=== PATIENT | female | born 1955 | race Two or more races ===

== ENCOUNTER 2019-06-05 15:25 | Inpatient (IN) | payer OTHER ==
[~2019-06-05] VITALS: Ht 157.5 cm; Wt 65.7 kg
[2019-06-05 15:51] LABS: Basophils # (auto) 0 uL; Basophils % (auto) 0.7 % (0.0-2.0); Eosinophils # (auto) 0.1 uL; Hematocrit 45.9 % (36.0-46.0); Lymphocytes # (auto) 1.4 uL; Lymphocytes % (auto) 18.9 % (10.0-50.0); Mean Corpuscular Hemoglobin 33.1 pg (28.0-32.0); Mean Corpuscular Volume 94.7 fL (80.0-100.0); Monocytes # (auto) 0.6 uL; Monocytes % (auto) 7.8 % (0.0-12.0); Neutrophils # (auto) 5.2 uL; Neutrophils % (auto) 71.6 % (37.0-80.0); Nucleated Red Blood Cells % 0.1 %; Platelet Count (auto) 288 10^3/uL (140-450); Red Blood Cells 4.84 10^6/uL (4.0-5.20); Red Cell Distribution Width 13.4 % (11.8-14.3); White Blood Cell 7.2 10^3/uL (4.4-10.8)
[2019-06-05 15:52] LABS: Urine Bacteria NONE SEEN /hpf (None Seen); Urine Blood Negative /uL (Negative); Urine Specific Gravity 1.002 (1.001-1.035); Urine WBC <1 /hpf (0 - 5)
[2019-06-05 16:07] LABS: Albumin 4.5 g/dL (3.4-5.0); Calcium 9.9 mg/dL (8.5-10.1); Potassium 3.4 mmol/L (3.5-5.1)
[2019-06-05 16:12] LABS: BUN/Creatinine Ratio 8.9; Bilirubin, Total 0.5 mg/dL (0.2-1.0); Total Protein 9.2 g/dL (6.4-8.2)
[2019-06-05] MEDS ORDERED: ASPirin 81 mg TAB PO ONE (18:15)
[2019-06-05 19:17] LABS: INR 1.03 (0.9-1.15); Partial Thromboplastin Time 26.4 sec (23.64-32.05)
[2019-06-05] MEDS: HYDROcodone-ACET 10/325MG TAB PO PRN (22:42)
[2019-06-06] MEDS: ONDANSETRON HCL 4 MG/2 ML VIAL IV PRN ×2 (03:26→08:07)
[2019-06-06 05:35] VITALS: BP 125/81
[2019-06-06] MEDS: HYDROcodone-ACET 10/325MG TAB PO PRN ×3 (08:07→16:27)
[2019-06-06 09:00] VITALS: BP 127/73
[2019-06-06] MEDS: ENOXAPARIN SOD 40 MG/0.4 ML SYRINGE SC SCH (11:02)
[2019-06-06] MEDS: LISINOPRIL 5 MG TAB PO SCH (11:03)
[2019-06-06] MEDS: METOPROLOL TARTRATE 50 MG TAB PO SCH (11:04)
[2019-06-06] MEDS: PANTOPRAZOLE 40 MG TAB PO SCH (11:04)
[2019-06-06] MEDS: ASPirin 81 mg TAB PO SCH (11:05)
[2019-06-06 13:00] VITALS: BP 107/67
[2019-06-06 17:00] VITALS: BP 127/72
[2019-06-06 20:30] VITALS: BP 151/98
[2019-06-06] MEDS: methylPREDNISolone SOD SUCC 125 MG/2 ML VL IV SCH (21:31)
[2019-06-06] MEDS: MONTELUKAST SODIUM 10 MG TAB PO SCH (21:32)
[2019-06-06 22:00] VITALS: BP 151/98
[2019-06-07 05:00] VITALS: BP 134/81
[2019-06-07 09:00] VITALS: BP 118/69
[2019-06-07] MEDS ORDERED: ADENOSINE 55 MG in GIVE UN-DILUTED 0 ML IV STA (09:23)
[2019-06-07 09:33] VITALS: BP 122/68
[2019-06-07] MEDS: LORATADINE 10 MG TAB PO SCH (11:48)
[2019-06-07] MEDS: methylPREDNISolone SOD SUCC 125 MG/2 ML VL IV SCH ×2 (11:48→22:06)
[2019-06-07] MEDS: ASPirin 81 mg TAB PO SCH (11:48)
[2019-06-07] MEDS: PANTOPRAZOLE 40 MG TAB PO SCH (11:48)
[2019-06-07] MEDS: METOPROLOL TARTRATE 50 MG TAB PO SCH (11:51)
[2019-06-07] MEDS: ENOXAPARIN SOD 40 MG/0.4 ML SYRINGE SC SCH (11:51)
[2019-06-07] MEDS: LISINOPRIL 5 MG TAB PO SCH (11:51)
[2019-06-07 13:00] VITALS: BP 113/71
[2019-06-07 17:00] VITALS: BP 126/81
[2019-06-07 22:00] VITALS: BP 136/60
[2019-06-07] MEDS: MONTELUKAST SODIUM 10 MG TAB PO SCH (22:06)
[2019-06-08 05:00] VITALS: BP 121/65
[2019-06-08 08:47] VITALS: BP 126/59
[2019-06-08] MEDS: LORATADINE 10 MG TAB PO SCH (09:46)
[2019-06-08] MEDS: methylPREDNISolone SOD SUCC 125 MG/2 ML VL IV SCH (09:46)
[2019-06-08] MEDS: PANTOPRAZOLE 40 MG TAB PO SCH (09:47)
[2019-06-08] MEDS: ASPirin 81 mg TAB PO SCH (09:47)
[2019-06-08] MEDS: METOPROLOL TARTRATE 50 MG TAB PO SCH (09:48)
[2019-06-08] MEDS: LISINOPRIL 5 MG TAB PO SCH (09:48)
[2019-06-08] MEDS: ENOXAPARIN SOD 40 MG/0.4 ML SYRINGE SC SCH (09:49)
[2019-06-08 13:00] VITALS: BP 113/65
[2019-06-08] MEDS ORDERED: PRED20TA2 PO (13:08)
[2019-06-08] MEDS ORDERED: MONT10TA23 PO (13:08)
[2019-06-08] MEDS ORDERED: LORA-154 PO (13:08)
[2019-06-08 13:35] VITALS: BP 113/65
== END 2019-06-08 14:16 | DRG 596 ==
LOC: EEVIPCON 15:25 → EDBD 15:25 → ER 15:25 → TELE 15:26 → TELE-EAST 21:54
PROVIDERS: ADMIT Internal Medicine; ATTEND Internal Medicine
DX: L52 Erythema nodosum (principal); R42 Dizziness and giddiness; R79.89 Other specified abnormal findings of blood chemistry; F32.9 Major depressive disorder, single episode, unspecified; F41.9 Anxiety disorder, unspecified; I10 Essential (primary) hypertension; R07.89 Other chest pain; Z79.899 Other long term (current) drug therapy; Z80.3 Family history of malignant neoplasm of breast; Z98.51 Tubal ligation status; Z82.49 Family history of ischemic heart disease and other diseases of the circulatory system
CPT/HCPCS: 36415; 70450; 71045; 78452; 80053; 81001; 83735; 83880; 84443; 84484; 85025; 85610; 85730; 93005; 93017; G0378; J0153; J2405